=== PATIENT | female | born 1995 | race Caucasian/White ===

== ENCOUNTER 2017-08-13 15:31 | Emergency (ER) | payer MEDICAID ==
[~2017-08-13] VITALS: Ht 157.5 cm; Wt 57.1 kg
[2017-08-13] MEDS ORDERED: SODIUM CHLORIDE FLUSH 10ML SYR IVF ONE (16:00)
[2017-08-13] MEDS ORDERED: SODIUM CHLORIDE 0.9% 1,000ML IVBOLUS ONE (16:00)
[2017-08-13] MEDS ORDERED: ONDANSETRON 2MG/ML, 2ML IVPush ONE (16:00)
[2017-08-13] MEDS ORDERED: MORPHINE SULFATE 4 MG/ML, 1ML IVPush PRN (16:00)
[2017-08-13 16:02] LABS: HEMATOCRIT 42.2 % (34.6-47.8); HEMOGLOBIN 14.2 g/dL (11.7-16.4); WHITE BLOOD COUNT 7.5 x10^3/uL (3.4-10)
[2017-08-13 16:14] LABS: ASPARTATE AMINO TRANSFERASE 7 U/L (15-37); BLOOD UREA NITROGEN 15 mg/dL (7-18)
[2017-08-13] MEDS ORDERED: MORPHINE SULFATE 4 MG/ML, 1ML ONE (16:22)
[2017-08-13] MEDS ORDERED: ONDANSETRON 2MG/ML, 2ML ONE (16:23)
[2017-08-13] MEDS ORDERED: OMNIPAQUE 350 MG/ML, 100ML BOTTLE ONE (20:02)
[2017-08-13] MEDS ORDERED: METOCLOPRAMIDE 5 MG/ML, 2ML ONE (20:30)
[2017-08-13] MEDS ORDERED: METOCLOPRAMIDE 5 MG/ML, 2ML IVPush ONE (20:30)
[2017-08-13 21:05] VITALS: BP 99/48
== END 2017-08-13 21:07 | disposition home or self-care (01) ==
LOC: ED 20:08
DX: R10.84 Generalized abdominal pain (principal)
CPT/HCPCS: 36415; 74022; 74177; 80053; 81001; 84703; 85025; 96361; 96374; 96375; 99285; J2405; J2765; J7030; Q9967

== ENCOUNTER 2018-08-28 17:11 | Emergency (ER) | payer SELFPAY ==
[~2018-08-28] VITALS: Ht 157.5 cm; Wt 46.0 kg
[2018-08-28] MEDS ORDERED: ACETAMINOPHEN 500 MG TABLET ONE (19:14)
[2018-08-28] MEDS ORDERED: IBUPROFEN 200 MG TABLET ONE (19:14)
[2018-08-28 19:22] LABS: BASOPHILS # (AUTO) 0.02 x10^3/uL (0-0.1); BASOPHILS % (AUTO) 0 % (0-1); EOSINOPHILS # (AUTO) 0.05 x10^3/uL (0-0.4); EOSINOPHILS % (AUTO) 1 % (1-7); LYMPHOCYTES # (AUTO) 1.51 x10^3/uL (1-3.4); LYMPHOCYTES % (AUTO) 29 % (22-44); MD NO; MEAN CORPUSCULAR HGB CONC 33.7 g/dL (32.4-35.8); MEAN CORPUSCULAR VOLUME 91.9 fL (80-100); MEAN PLATELET VOLUME 9.3 fL (7.4-10.4); MONOCYTES # (AUTO) 0.45 x10^3/uL (0.2-0.8); MONOCYTES % (AUTO) 9 % (2-9); NEUTROPHILS % (AUTO) 61 % (42-75); PLATELET COUNT 185 x10^3/uL (130-400); RED BLOOD COUNT 4.44 x10^6/uL (3.82-5.3)
[2018-08-28] MEDS ORDERED: ACETAMINOPHEN 500 MG TABLET PO ONE (19:30)
[2018-08-28] MEDS ORDERED: IBUPROFEN 200 MG TABLET PO ONE (19:30)
[2018-08-28 19:33] LABS: ALBUMIN 3.7 g/dL (3.4-5.0); ANION GAP 6 mmol/L (5-15); CALCIUM 8.6 mg/dL (8.5-10.1); CHLORIDE 110 mmol/L (98-107); CREATININE 0.63 mg/dL (0.55-1.02)
[2018-08-28 19:36] LABS: TROPONIN I < 0.015 ng/mL (0.000-0.045)
[2018-08-28 20:10] LABS: HCG UR SG 1.024 (1.003-1.030)
[2018-08-28 20:28] VITALS: BP 111/72
== END 2018-08-28 21:01 | disposition home or self-care (01) ==
LOC: ED 19:10
DX: R07.2 Precordial pain (principal)
CPT/HCPCS: 36415; 71045; 80048; 81025; 82040; 84484; 85025; 93005; 99285

== ENCOUNTER 2021-02-24 00:17 | Emergency (ER) | payer OTHER ==
[~2021-02-24] VITALS: Ht 157.5 cm; Wt 46.9 kg
--- NOTE | 2021-02-24 00:34 | NUR ---
pt having back pain x2 week. pt stated pain went away but when working yesterday pain was getting worse. pt states pain worse on the left and intermittent. pt states she had started seeing ciropractor 3 times a week, as well. erp at bedside for eval
[2021-02-24] MEDS ORDERED: IBUPROFEN 600 MG TABLET ONE (00:49)
--- NOTE | 2021-02-24 00:56 | NUR ---
BREAK RN: PT AT XRAY
[2021-02-24] MEDS ORDERED: IBUPROFEN 600 MG TABLET PO ONE (01:00)
--- NOTE | 2021-02-24 01:25 | NUR ---
BREAK RN: PT UP TO BATHROOM FOR UA. PT AMBULATED TO BATHROOM WITH A STEADY GAIT.
[2021-02-24] MEDS ORDERED: CYCLOBENZAPRINE 10 MG TABLET PO ONE (01:30)
[2021-02-24] MEDS ORDERED: CYCLOBENZAPRINE 10 MG TABLET ONE (01:35)
[2021-02-24 02:02] LABS: MICROSCOPIC AUTO
[2021-02-24 03:30] VITALS: BP 125/74
== END 2021-02-24 03:40 | disposition home or self-care (01) ==
LOC: ED 00:53
DX: M54.5 Low back pain (principal); M54.6 Pain in thoracic spine
CPT/HCPCS: 72072; 72110; 81001; 99284